=== PATIENT | male | born 1985 | race Caucasian/White ===

== ENCOUNTER 2019-07-31 09:47 | Emergency (ER) | payer MEDICAID, SELFPAY ==
[2019-07-31 09:53] VITALS: BP 144/80; PULSE 83; RESP 16; TEMP 36.7; O2SAT 98
--- NOTE | 2019-07-31 10:10 | ED.GENADUL_ITS ---
Discharge Plan Disposition Patient Disposition: HOME Condition: Stable Discharge Details Chief Complaint: EarProblem Clinical Impression: Otitis media Primary Care Provider: None,None ED Provider: Cheng Jefferson Home Meds and New Rx's Prescriptions: New amoxicillin 500 mg tablet 500 mg PO Q8H 7 Days Qty: 21 RF: 0 No Action buprenorphine-naloxone [Suboxone] 8-2 mg Film 2 film DAILY RF: 0 Discharge Instructions Instructions: Otitis Media (ED) Additional Instructions: Amoxicillin as directed. Mlmn-kvc-[id number] medication such as Tylenol and/or Motrin as directed for discomfort. Xkvn-nsa-nhbjdei medications such as antihistamines and decongestants may help with symptomatic control. Please watch for new or worsening symptoms and return to the ER for any concerns Medical Decision Making 34-year-old gentleman who has had URI like symptoms over the past 2 weeks, now settling in the right ear. Patient appears well, nontoxic. He is afebrile. There is no clear otitis externa, there is no obvious perforation of the TM. Clinical evaluation is more consistent with an otitis media and will treat as such. Patient and family are comfortable with this plan. Will treat with amoxicillin prescription, recommend [id number]-[id number] medication for symptomatic control. Patient and family are comfortable this plan and have no additional questions or concerns Medical Records Medical records reviewed: Yes I reviewed the patient's medical records. HPI General Mode of arrival: ambulatory . Date/Time Provider Initiated Documentation: 07/31/19 09:49 . Limitations to Documentation: no limitations . Information obtained by: patient and family . HPI Narrative: 34-year-old male presents with what he describes as 2-week history of upper respiratory infection. He reports that his symptoms included a dry cough, nasal congestion, sinus pressure, bilateral ear pain and pressure. Those symptoms have improved greatly with qeeh-gnz-gdtvcul medications however over the past couple of days it seems to have settled in his right ear causing 8 out of 10 pain. This morning he used a Q-tip and thought that there is a small amount of drainage coming from his right ear, possibly blood tinged. Patient denies any headache, fever, chills, neck pain, nausea, vomiting or abdominal pain. He reports that his son did have similar symptoms over the past week. He does smoke roughly half pack cigarettes daily Related Data Home Medications Medication Instructions Recorded Confirmed amoxicillin 500 mg PO Q8H 7 Days #21 tab 07/31/19 buprenorphine-naloxone [Suboxone] 2 film DAILY 07/31/19 07/31/19 Previous Rx's Medication Instructions Recorded amoxicillin 500 mg PO Q8H 7 Days #21 tab 07/31/19 Allergies Allergy/AdvReac Type Severity Reaction Status Date / Time No Known Allergies Allergy Unverified 07/31/19 09:57 General Stated Complaint: EarProblem YO: 4 Review of Systems Constitutional Constitutional: Denies chills, Denies fever(s) and Denies headache(s) Eyes Eyes: Denies eye discharge ENT Ears, Nose, Mouth, and Throat: Denies headache(s) and Denies sore throat Cardiovascular Cardiovascular: Denies chest pain Respiratory Respiratory: Denies cough Gastrointestinal Gastrointestinal: Denies abdominal pain, Denies diarrhea, Denies nausea and Denies vomiting Integumentary/Breasts Skin/Breast: Denies rash Neurologic Neurologic: Denies headache(s) COUNTS INCLUDE 234 BEDS AT THE [facility] Social History Smoking/Tobacco Use Status: Current every day Alcohol Intake: never Drug use: Occasionally Substance use type: marijuana Exam Const General: cooperative, healthy appearing and comfortable Orientation: alert and awake HENMT Head: normal to inspection, normocephalic and atraumatic Ears: external ears normal, TM normal on the right, TM normal on the left and TM abnormal bulging, erythematous and with loss of landmarks; not perforated Mouth: moist mucous membranes abnormal Throat: posterior oropharynx normal Eyes Conjunctivae: abnormal conjunctivae Neck Neck: normal visual inspection, full ROM, no lymphadenopathy, no meningeal signs, trachea midline and supple Resp Effort & Inspection: normal respiratory effort Auscultation: clear to auscultation bilaterally Cardio Rate: regular rate Rhythm: regular rhythm Skin General skin exam: no rashes or lesions noted Course Vital Signs Vital signs: Vital Signs Temperature 36.7 C 07/31/19 09:53 Pulse 83 07/31/19 09:53 Respiratory Rate 16 07/31/19 09:53 Blood Pressure 144/80 H 07/31/19 09:53 Pulse Oximetry 98 07/31/19 09:53 Temperature 36.7 C 07/31/19 09:53 Temperature Source Skin 07/31/19 09:53 Pulse 83 07/31/19 09:53 Respiratory Rate 16 07/31/19 09:53 Respiratory Effort Non-Labored 07/31/19 09:53 Blood Pressure 144/80 H 07/31/19 09:53 Blood Pressure Position Sitting 07/31/19 09:53 Pulse Oximetry 98 07/31/19 09:53 Oxygen Delivery Method Room Air 07/31/19 09:53 Oxygen Flow Rate 0 07/31/19 09:53 Pain Level 10 07/31/19 09:58
== END 2019-07-31 10:24 | disposition home or self-care (01) ==
LOC: ER 10:37
PROVIDERS: Emergency Provider Physician Assistant
DX: H66.91 Otitis media, unspecified, right ear (principal)
CPT/HCPCS: 99283

== ENCOUNTER 2019-10-09 13:11 | Emergency (ER) | payer MEDICAID, SELFPAY ==
[2019-10-09 13:26] VITALS: BP 162/75; PULSE 90; RESP 14; TEMP 36.5; O2SAT 97
--- NOTE | 2019-10-09 13:30 | W.ED.GENAD ---
Discharge Plan Disposition Patient Disposition: HOME Condition: Stable Discharge Details Chief Complaint: RashLesion Clinical Impression: Cellulitis Primary Care Provider: None,None ED Provider: Cheng Jefferson Home Meds and New Rx's Prescriptions: New doxycycline hyclate 100 mg tablet 100 mg PO BID Qty: 20 RF: 0 No Action buprenorphine-naloxone [Suboxone] 8-2 mg Film 2 film DAILY RF: 0 Discharge Instructions Instructions: Cellulitis (ED) Additional Instructions: Doxycycline as directed. Keep the area clean and dry. You may apply topical antibiotic ointment twice daily. Please watch for new or worsening symptoms and return to the ER for any concerns. I have given your name to our care management team to help expedite outpatient care and a new primary care provider. Medical Decision Making Presents with slightly itchy-painful rash across his buttocks. He is afebrile. There is no lymphadenopathy. No evidence of abscess or lymphangitic streaking. No induration or fluctuance. Patient reports similar rash to his leg in the past. Given his history of incarceration and similar rash, very well could be MRSA. Will obtain culture between his buttocks cheeks and treat with oral doxycycline. Patient comfortable this plan Medical Records Medical records reviewed: Yes I reviewed the patient's medical records. HPI General Mode of arrival: ambulatory. Date/Time Provider Initiated Documentation: 10/09/19 13:12. Limitations to Documentation: no limitations. Information obtained by: patient. HPI Narrative: 34-year-old gentleman presents with a rash to his buttocks that is been there for 3 or 4 days. Reports minimal discomfort, more so itching in general. Reports that he thinks the area became sweaty, skin rubbed together, broke down and is now infected. He denies fever or rash elsewhere on his body. Denies difficulty with bowel or bladder function. Reports that while he was incarcerated in the past, had a similar rash on his left leg that required oral antibiotics. Related Data Home Medications Medication Instructions Recorded Confirmed buprenorphine-naloxone [Suboxone] 2 film DAILY 07/31/19 10/09/19 doxycycline hyclate 100 mg PO BID #20 tab 10/09/19 Previous Rx's Medication Instructions Recorded doxycycline hyclate 100 mg PO BID #20 tab 10/09/19 Allergies Allergy/AdvReac Type Severity Reaction Status Date / Time No Known Allergies Allergy Unverified 10/09/19 13:29 General Stated Complaint: RashLesion YO: 4 Review of Systems Constitutional Constitutional: Denies fever(s) and Denies weakness Cardiovascular Cardiovascular: Denies chest pain and Denies dyspnea Respiratory Respiratory: Denies dyspnea Genitourinary Genitourinary: Denies dysuria Musculoskeletal Musculoskeletal: Denies back pain, Denies numbness and Denies tingling Integumentary/Breasts Skin/Breast: Reports erythema and Reports rash Neurologic Neurologic: Denies numbness, Denies tingling and Denies weakness [facility] Social History Smoking/Tobacco Use Status: Current every day Tobacco Type: cigarettes Smoking packs per day: 0.5 Smoking cigarettes per day: 10.0 Alcohol Intake: never Drug use: Occasionally Substance use type: marijuana Do you feel safe at home: Yes Do you feel safe in your relationship?: Yes Exam Const General: cooperative, healthy appearing, comfortable and no acute distress Orientation: alert and awake HENMT Head: normal to inspection, normocephalic and atraumatic Mouth: moist mucous membranes Eyes Conjunctivae: conjunctivae normal Neck Neck: normal visual inspection, trachea midline and supple Resp Effort & Inspection: normal respiratory effort and able to speak in complete sentences Cardio Rate: regular rate Rhythm: regular rhythm Skin General skin exam: erythema, no fluctuance and no induration Rashes: rashes noted (Buttocks, patchy macular erythema with central scabbing) and other (Slightly warm. Superior aspect between his buttocks, mild skin breakdown) Neuro General: patient alert, patient awake, moves all extremities and no focal motor deficits Sensory Exam: no sensory deficits noted Psych Appearance: grossly normal Mental Status: mental status grossly normal Course Vital Signs Vital signs: Vital Signs Temperature 36.5 C 10/09/19 13:26 Pulse 90 10/09/19 13:26 Respiratory Rate 14 10/09/19 13:26 Blood Pressure 162/75 H 10/09/19 13:26 Pulse Oximetry 97 10/09/19 13:26 Temperature 36.5 C 10/09/19 13:26 Temperature Source Tympanic 10/09/19 13:26 Pulse 90 10/09/19 13:26 Respiratory Rate 14 10/09/19 13:26 Respiratory Effort Non-Labored 10/09/19 13:28 Blood Pressure 162/75 H 10/09/19 13:26 Blood Pressure Position Sitting 10/09/19 13:26 Pulse Oximetry 97 10/09/19 13:26 Oxygen Delivery Method Room Air 10/09/19 13:26 Oxygen Flow Rate 0 10/09/19 13:26 Pain Level 2 10/09/19 13:26 Lab/Test Results Lab/Test Results: 10/09/19 13:26 Coccyx Skin Culture - Pending
--- NOTE | 2019-10-10 12:05 | PDOC.ERCMACT ---
- If Service Date Differs Date of service: 10/10/19 Time of Service: 12:05 Care Management Activity Note CM coordinates a referral to [employer] for assistance with obtaining health insurance. Records show he went to [employer] in July 2019 to apply for insurance and it is unclear to CM why he remains uninsured. CM also coordinates a referral to [facility] for the purpose of establishing care with a PCP.
== END 2019-10-09 13:59 | disposition home or self-care (01) ==
LOC: ER 14:09
PROVIDERS: Emergency Provider Physician Assistant
DX: L03.317 Cellulitis of buttock (principal)
CPT/HCPCS: 87077; 99283; 87070; 87186